=== PATIENT | male | born 1980 | race Caucasian/White ===

== ENCOUNTER 2016-05-29 20:02 | Emergency (ER) | payer OTHER ==
[2016-05-29 21:04] LABS: HEMOGLOBIN 17.4 gm/dl (14.0-17.5); RED BLOOD COUNT 5.64 M/UL (4.20-5.50); WHITE BLOOD COUNT 16.3 K/UL (4.5-11.0)
[2016-05-29 21:21] LABS: BUN/CREATININE RATIO 14 (0-10)
== END 2016-05-30 01:30 | disposition home or self-care (01) ==
LOC: ER1 20:02
PROVIDERS: Physician Assistant
DX: R10.817 Generalized abdominal tenderness (principal); R11.2 Nausea with vomiting, unspecified; Z87.891 Personal history of nicotine dependence; Z88.1 Allergy status to other antibiotic agents
CPT/HCPCS: 36415; 80053; 83690; 85025; 96374; 96375; 99284; J2060; J7030; J7050; Q9962